=== PATIENT | female | born 1945 | race Caucasian/White ===

== ENCOUNTER 2016-06-19 19:23 | Inpatient (IN) | payer OTHER ==
[~2016-06-19] VITALS: Ht 172.7 cm; Wt 83.7 kg
[2016-06-19 20:13] LABS: EOSINOPHIL (%) 0.5 % (0-5); HEMATOCRIT 24.6 % (36.0-46.0); IMMATURE GRANULOCYTE (%) 0.3 % (0.0-0.7); IMMATURE GRANULOCYTE COUNT 0.2 K/uL; LYMPHOCYTE COUNT 2.7 K/uL (1.0-2.8); MCH 27.9 PG (29.0-34.0); MCHC 32.1 G/DL (30.0-36.0); MCV 86.9 FL (83-99); MEAN PLAT.VOLUME 10.9 uM^3 (9.5-12.4); MONOCYTE (%) 10.9 % (3-12); MONOCYTE COUNT 0.8 K/uL (0-0.8); NEUTROPHIL (%) 53.1 % (45-76); PLATELET COUNT 241 K/uL (156-360); RBC DIS.WIDTH-CV 15.2 % (11.8-14.6); RBC DIS.WIDTH-SD 45.4 % (39-53); RED BLOOD COUNT 2.83 M/uL (3.80-5.20); WHITE BLOOD COUNT 7.6 K/uL (4.1-10.2)
[2016-06-19 20:15] LABS: CHLORIDE 108 mEq/L (99-109); POTASSIUM 4.1 mEq/L (3.7-5.4); SODIUM 138 mEq/L (136-147)
[2016-06-19 20:16] LABS: GLUCOSE 112 mg/dL (70-99)
[2016-06-19 20:18] LABS: ANION GAP 7 MEQ/L (2-14)
[2016-06-19 20:20] LABS: GFR ESTIMATE (CALCULATED) > 59 mL/min/
[2016-06-19 20:21] LABS: UREA NITROGEN (BUN) 32 mg/dL (9-23)
[2016-06-19 20:28] LABS: TROP-I INTERPRETATION NEGATIVE; TROPONIN-I 0.01 ng/mL (0.0-0.30)
[2016-06-19 20:41] LABS: INTER. NORMALIZED RATIO 1.1; PROTHROMBIN TIME 11.1 (9.2-11.2); PTT 24.1 (25-32)
[2016-06-19] MEDS ORDERED: XARELTO20 MG PO (22:28)
[2016-06-19] MEDS ORDERED: CLOTRIMAZOLE-BE15 GM TP (22:28)
[2016-06-19] MEDS ORDERED: ALLEGRA ALLERG180 MG PO (22:28)
[2016-06-19] MEDS ORDERED: PRESERVISION A1 EAC2 PO (22:28)
[2016-06-19] MEDS ORDERED: SALINE NASAL SP45 ML BOTH NARES (22:28)
[2016-06-19] MEDS ORDERED: METOPROLOL SUCC25 MG PO (22:28)
[2016-06-19] MEDS ORDERED: ZANTAC150 MG PO (22:29)
[2016-06-19] MEDS ORDERED: TUMS500 MG PO (22:29)
[2016-06-20] VITALS (9 sets, daily range): BP systolic 88–129; BP diastolic 59–81
[2016-06-20 08:41] LABS: HEMATOCRIT 28.1 % (36.0-46.0); MCH 27.8 PG (29.0-34.0); MCHC 32.7 G/DL (30.0-36.0); MCV 84.9 FL (83-99); MEAN PLAT.VOLUME 11.3 uM^3 (9.5-12.4); PLATELET COUNT 211 K/uL (156-360); RBC DIS.WIDTH-CV 15.1 % (11.8-14.6); RBC DIS.WIDTH-SD 44.2 % (39-53); RED BLOOD COUNT 3.31 M/uL (3.80-5.20); WHITE BLOOD COUNT 6.7 K/uL (4.1-10.2)
[2016-06-20 09:41] LABS: TROP-I INTERPRETATION NEGATIVE; TROPONIN-I 0.01 ng/mL (0.0-0.30)
[2016-06-20 13:10] LABS: TROP-I INTERPRETATION NEGATIVE; TROPONIN-I 0.01 ng/mL (0.0-0.30)
[2016-06-20 17:34] LABS: HEMATOCRIT 28.9 % (36.0-46.0); MCV 85.3 FL (83-99)
[2016-06-21 00:41] LABS: HEMATOCRIT 27.5 % (36.0-46.0); MCV 84.9 FL (83-99)
[2016-06-21 03:41] VITALS: BP 108/58
[2016-06-21 07:20] VITALS: BP 90/57
[2016-06-21 13:00] VITALS: BP 152/70
[2016-06-21 15:07] LABS: HEMATOCRIT 29.2 % (36.0-46.0); MCH 27.1 PG (29.0-34.0); MCHC 31.5 G/DL (30.0-36.0); MCV 86.1 FL (83-99); MEAN PLAT.VOLUME 10.9 uM^3 (9.5-12.4); PLATELET COUNT 230 K/uL (156-360); RBC DIS.WIDTH-CV 16.1 % (11.8-14.6); RBC DIS.WIDTH-SD 48.8 % (39-53); RED BLOOD COUNT 3.39 M/uL (3.80-5.20); WHITE BLOOD COUNT 6.3 K/uL (4.1-10.2)
[2016-06-21 15:20] LABS: EOSINOPHIL (%) 3.8 % (0-5); EOSINOPHIL COUNT 0.2 K/uL (0-0.3); IMMATURE GRANULOCYTE (%) 0.3 % (0.0-0.7); LYMPHOCYTE COUNT 2.9 K/uL (1.0-2.8); MONOCYTE (%) 9.3 % (3-12); MONOCYTE COUNT 0.6 K/uL (0-0.8); NEUTROPHIL (%) 40.5 % (45-76); NEUTROPHIL COUNT 2.5 K/uL (1.8-6.4)
[2016-06-21 15:46] VITALS: BP 141/73
[2016-06-21 20:00] VITALS: BP 145/82
[2016-06-21 23:15] VITALS: BP 138/72
[2016-06-22 03:15] VITALS: BP 113/63
[2016-06-22 06:57] LABS: EOSINOPHIL (%) 3.7 % (0-5); EOSINOPHIL COUNT 0.2 K/uL (0-0.3); HEMATOCRIT 25.7 % (36.0-46.0); IMMATURE GRANULOCYTE (%) 0.2 % (0.0-0.7); IMMATURE GRANULOCYTE COUNT 0.1 K/uL; LYMPHOCYTE COUNT 2.3 K/uL (1.0-2.8); MCH 27.9 PG (29.0-34.0); MCHC 32.3 G/DL (30.0-36.0); MCV 86.5 FL (83-99); MEAN PLAT.VOLUME 11.2 uM^3 (9.5-12.4); MONOCYTE (%) 8.6 % (3-12); MONOCYTE COUNT 0.5 K/uL (0-0.8); NEUTROPHIL COUNT 2.7 K/uL (1.8-6.4); PLATELET COUNT 221 K/uL (156-360); RBC DIS.WIDTH-CV 15.8 % (11.8-14.6); RBC DIS.WIDTH-SD 46.4 % (39-53); RED BLOOD COUNT 2.97 M/uL (3.80-5.20); WHITE BLOOD COUNT 5.7 K/uL (4.1-10.2)
[2016-06-22 07:06] LABS: CHLORIDE 110 mEq/L (99-109); SODIUM 141 mEq/L (136-147)
[2016-06-22 07:08] LABS: GLUCOSE 88 mg/dL (70-99)
[2016-06-22 07:09] LABS: ANION GAP 7 MEQ/L (2-14)
[2016-06-22 07:12] LABS: GFR ESTIMATE (CALCULATED) > 59 mL/min/
[2016-06-22 07:13] LABS: UREA NITROGEN (BUN) 13 mg/dL (9-23)
[2016-06-22 07:30] VITALS: BP 124/70
[2016-06-22 07:45] VITALS: BP 139/73
[2016-06-22 11:54] VITALS: BP 141/73
[2016-06-22 15:50] VITALS: BP 143/75
[2016-06-22 15:54] LABS: EOSINOPHIL (%) 2.9 % (0-5); EOSINOPHIL COUNT 0.2 K/uL (0-0.3); HEMATOCRIT 27.8 % (36.0-46.0); IMMATURE GRANULOCYTE (%) 0.2 % (0.0-0.7); LYMPHOCYTE COUNT 2.2 K/uL (1.0-2.8); MCH 27.5 PG (29.0-34.0); MCHC 31.7 G/DL (30.0-36.0); MCV 86.9 FL (83-99); MEAN PLAT.VOLUME 10.8 uM^3 (9.5-12.4); MONOCYTE (%) 7.8 % (3-12); MONOCYTE COUNT 0.5 K/uL (0-0.8); NEUTROPHIL (%) 55.2 % (45-76); NEUTROPHIL COUNT 3.6 K/uL (1.8-6.4); PLATELET COUNT 246 K/uL (156-360); WHITE BLOOD COUNT 6.5 K/uL (4.1-10.2)
[2016-06-22 19:30] VITALS: BP 117/66; BP 141/74
[2016-06-23 04:00] VITALS: BP 111/62
[2016-06-23 06:49] LABS: HEMATOCRIT 25.4 % (36.0-46.0); MCH 27.7 PG (29.0-34.0); MCHC 31.9 G/DL (30.0-36.0); MEAN PLAT.VOLUME 11.5 uM^3 (9.5-12.4); PLATELET COUNT 216 K/uL (156-360); RBC DIS.WIDTH-CV 16.1 % (11.8-14.6); RBC DIS.WIDTH-SD 50.1 % (39-53); RED BLOOD COUNT 2.92 M/uL (3.80-5.20); WHITE BLOOD COUNT 5.2 K/uL (4.1-10.2)
[2016-06-23 07:14] LABS: ANION GAP 7 MEQ/L (2-14); CHLORIDE 109 MEQ/L (99-109); GFR ESTIMATE (CALCULATED) > 59 mL/min/; GLUCOSE 88 mg/dL (70-99); MAGNESIUM 1.9 mg/dl (1.3-2.7); SAMPLE HEMOLYSIS CHECK 0; SAMPLE ICTERIC CHECK 0; SAMPLE LIPEMIA CHECK 0; SODIUM 144 MEQ/L (136-147); UREA NITROGEN (BUN) 9 mg/dL (9-23)
[2016-06-23 07:45] LABS: EOSINOPHIL COUNT 0.2 K/uL (0-0.3); IMMATURE GRANULOCYTE (%) 0.2 % (0.0-0.7); MONOCYTE (%) 8.2 % (3-12); MONOCYTE COUNT 0.4 K/uL (0-0.8); NEUTROPHIL (%) 49.3 % (45-76); NEUTROPHIL COUNT 2.6 K/uL (1.8-6.4)
[2016-06-23 09:27] VITALS: BP 130/63
[2016-06-23 11:28] VITALS: BP 133/65
[2016-06-23 11:47] LABS: HEMATOCRIT 26.7 % (36.0-46.0); MCV 87.3 FL (83-99)
[2016-06-23] MEDS ORDERED: PROTONIX40 MG PO (13:22)
[2016-06-23] MEDS ORDERED: LOPRESSOR25 MG PO (13:27)
== END 2016-06-23 15:25 | disposition home or self-care (01) | DRG 378 ==
LOC: EME → EDBD 19:23 → EDOF 06-20 00:21 → 4EAST 06-20 00:21
PROVIDERS: Emergency Medicine; Hospitalist; Internal Medicine
PROC: 0DJ08ZZ Inspection of Upper Intestinal Tract, Via Natural or Artificial Opening Endoscopic (ICD-10-PCS; principal; 2016-06-20)
PROC: 30233N1 Transfusion of Nonautologous Red Blood Cells into Peripheral Vein, Percutaneous Approach (ICD-10-PCS; principal; 2016-06-20)
PROC: 0DJD8ZZ Inspection of Lower Intestinal Tract, Via Natural or Artificial Opening Endoscopic (ICD-10-PCS; 2016-06-22)
DX: K92.1 Melena (principal); D62 Acute posthemorrhagic anemia; T45.515A Adverse effect of anticoagulants, initial encounter; K22.10 Ulcer of esophagus without bleeding; I48.0 Paroxysmal atrial fibrillation; K21.0 Gastro-esophageal reflux disease with esophagitis; K44.9 Diaphragmatic hernia without obstruction or gangrene; J30.9 Allergic rhinitis, unspecified; K64.8 Other hemorrhoids; Z79.01 Long term (current) use of anticoagulants
CPT/HCPCS: 71010; 80048; 83735; 84484; 85014; 85018; 85025; 85025 91; 85027; 85610; 85730; 86850; 86900; 86901; 86920; 93005; 99202; 99281; 99285; B4087; C9113; J2250; J3010; J7030; P9016

== ENCOUNTER 2017-07-15 08:22 | Emergency (ER) | payer OTHER ==
[~2017-07-15] VITALS: Ht 170.2 cm; Wt 79.1 kg
[~2017-07-15 08:22] MED LIST: ALLEGRA ALLERG180 MG PO; CLOTRIMAZOLE-BE15 GM TP; LOPRESSOR25 MG PO; METOPROLOL SUCC25 MG PO; PRESERVISION A1 EAC2 PO; PROTONIX40 MG PO; SALINE NASAL SP45 ML BOTH NARES; TUMS500 MG PO; XARELTO20 MG PO; ZANTAC150 MG PO
[2017-07-15] MEDS ORDERED: FLEXERIL10 MG PO (09:09)
[2017-07-15 10:17] VITALS: BP 152/88
== END 2017-07-15 10:18 | disposition home or self-care (01) ==
LOC: EME 08:22
DX: M54.42 Lumbago with sciatica, left side (principal); K21.9 Gastro-esophageal reflux disease without esophagitis; Z85.9 Personal history of malignant neoplasm, unspecified
CPT/HCPCS: 99281; 99284; J1885